=== PATIENT | female | born 1950 | race Caucasian/White ===

== ENCOUNTER → 2020-05-03 | Outpatient (CLI) | payer MEDICARE | LOC: LAB 09:10 | PROVIDERS: ATTEND Nurse Anesthetist, Certified Registered | DX: Z01.812 Encounter for preprocedural laboratory examination (principal); Z20.828 Contact with and (suspected) exposure to other viral communicable diseases | CPT/HCPCS: U0003 ==

== ENCOUNTER → 2020-05-07 | Day surgery (SDC) | payer MEDICARE ==
[~2020-05-07] MED LIST: IPRATRPIUM/ALBUTEROL 0.5/2.5MG 3 ML NEBU. NEB PRN; IV RINGERS SOLUTION,LACTATED 1,000 ML IV SCH; LIDOCAINE 2% PF 5 ML VIAL. ONE; LISI10TA16 PO; MIDAZOLAM HCL PF 2 MG/2 ML VIAL. IV ONE; ONDANSETRON PF 4 MG/2 ML VIAL. IV PRN; PROPOFOL 10,000 MCG/ML (20ML) VIAL IV ONE
[2020-05-07 11:41] VITALS: BP 126/76
--- NOTE | 2020-05-10 15:08 | PATHOLOGY ---
[facility] Accession Number: [id number] . 01 Material submitted: . PART A: cecum - CECAL POLYP PART B: colon - ASCENDING COLON POLYP. Modifiers: ascending PART C: sigmoid colon - SIGMOID COLON POLYP PART D: rectum - RECTAL POLYP . 02 Diagnosis: A. Colon biopsies, cecal polyp: - Sessile serrated polyp. . B. Colon biopsy, ascending colon polyp: - Tubular adenoma. . C. Colon biopsy, sigmoid polyp: - Tubular adenoma. . D. Colorectal biopsies, rectal polyp: - Hyperplastic polyp. ([facility]:nasreen 05/10/2020) [facility] 05/10/2020 1033 Local . 02 Comment: There is no high-grade dysplasia or evidence of malignancy. ([facility]:nasreen 05/10/2020) . 02 Electronically signed: . Gallo Garsia MD, Pathologist NPI- [id number] . 01 Gross description: . A. Received in formalin labeled "Floetke, Radha, cecal polyp" are multiple fragments of farfan-brown soft tissue measuring in aggregate 0.7 x 0.3 x 0.1 cm. The specimen is submitted entirely in A1. . B. Received in formalin labeled "Floetke, Radha, ascending polyp" is a fragment of farfan-brown soft tissue measuring 0.3 x 0.3 x 0.2 cm. The specimen is submitted entirely in B1. . C. Received in formalin labeled "Floetke, Radha, sigmoid polyp" is a fragment of farfan-brown soft tissue measuring 0.4 x 0.4 x 0.1 cm. The specimen is submitted entirely in C1. . D. Received in formalin labeled "Floetke, Radha, rectal polyp" are two fragments of farfan-brown soft tissue measuring in aggregate 0.5 x 0.2 x 0.1 cm. The specimen is submitted entirely in D1. [place] [place] [facility] 05/09/2020 1148 Local . 02 Pathologist provided ICD-10: K63.5, D12.2, D12.5, K62.1 . 02 CPT . 878666, [id number], [id number], [id number] Specimen Comment: A courtesy copy of this report has been sent to [phone], [phone] Specimen Comment: [id number] Specimen Comment: Report sent to / DR ESTEVEZ Performed at: 01 [facility] [address], [place] [id number] MD Stanislaw Gaming MD Phone: [phone] Performed at: 02 [facility] [address] [place], [place] [id number] MD Gallo Garsia MD Phone: [phone]
== END | disposition home or self-care (01) ==
LOC: SURG 10:12
PROVIDERS: ATTEND Emergency Medicine
DX: Z12.11 Encounter for screening for malignant neoplasm of colon (principal); D12.0 Benign neoplasm of cecum; D12.8 Benign neoplasm of rectum; D12.5 Benign neoplasm of sigmoid colon; I10 Essential (primary) hypertension; K57.30 Diverticulosis of large intestine without perforation or abscess without bleeding; I25.10 Atherosclerotic heart disease of native coronary artery without angina pectoris; E78.00 Pure hypercholesterolemia, unspecified; Z86.010 Personal history of colon polyps; Z79.82 Long term (current) use of aspirin; Z79.899 Other long term (current) drug therapy; Z98.890 Other specified postprocedural states
CPT/HCPCS: 45380; J2001; J2704; J7120; 88305